=== PATIENT | female | born 1940 | race Caucasian/White ===

== ENCOUNTER 2018-06-10 09:32 | Outpatient (CLI) | payer MEDICARE ==
--- NOTE | 2018-06-10 16:38 | DEXA Report ---
Reason: POST MENOPAUSAL, SCREENING MAMMO Procedure Date: 06/10/2018 Accession Number: [id number] / [id number] Procedure: DEX - Dexa Spine and/or Hip CPT Code: FULL RESULT: EXAM: Dexa Spine and/or Hip DATE: 06/10/2018 10:21 AM CLINICAL HISTORY: POST MENOPAUSAL, SCREENING MAMMO TECHNIQUE: Dual energy x-ray absorptiometry (DXA) was performed on a [employer] System. Regions measured are the AP Spine, femoral neck, and if needed forearm. COMPARISON: None. In accordance with the International Society for Clinical Densitometry (ISCD) guidelines, data from previous exams may be reanalyzed using current recommendations and techniques. This is done to allow a more accurate basis for comparison with the current study. FINDINGS: The data for the lumbar spine is as follows: BMD (g/cm/cm) T-SCORE Z-SCORE REGION L1 0.836 -2.4 -1.4 L2 0.966 -1.9 -0.9 L3 1.182 -0.1 0.9 L4 TOTAL 1.001 -1.4 -0.3 NOTE: All evaluable vertebrae are used for classification The data for the hip is as follows: BMD (g/cm/cm) T-SCORE Z-SCORE REGION Neck 0.725 -2.3 -0.7 TOTAL 0.855 -1.2 0.1 NOTE: The femoral neck or total proximal femur, whichever is lowest, is used for classification. IMPRESSION: THE WHO CLASSIFICATION BASED ON THE INTERNATIONAL REFERENCE STANDARD IS OSTEOPENIA. THE FRACTURE RISK IS INCREASED. RECOMMENDATION: Patients with diagnosis of osteoporosis or osteopenia should have regular bone mineral density assessment. For those eligible for Medicare, routine testing is allowed once every 2 years. Testing frequency can be increased for patients who have rapidly progressing disease or for those who are receiving medical therapy to restore bone mass. COMMENT: World Health Organization (WHO) definitions for osteoporosis and osteopenia: NORMAL BMD: T-score at -1.0 or higher, fracture risk is low OSTEOPENIA BMD: T-score between -1.0 and -2.5, fracture risk is increased. OSTEOPOROSIS BMD: T-score at -2.5 or lower, fracture risk is high. National Osteoporosis Foundation recommends: 1. Obtain adequate dietary calcium (at least 1200 mg per day) and vitamin D (400-800 international units per day). 2. Participate, as appropriate, in regular weightbearing and muscle-strengthening exercise. 3. Avoid tobacco use and reduce alcohol and caffeine intake. 4. For more detailed information see the website at www.NOF.org.
== END 2018-06-10 09:33 | disposition home or self-care (01) ==
LOC: DI 09:32
PROVIDERS: ATTEND Physician Assistant
DX: Z12.31 Encounter for screening mammogram for malignant neoplasm of breast (principal); N95.8 Other specified menopausal and perimenopausal disorders; M85.89 Other specified disorders of bone density and structure, multiple sites
CPT/HCPCS: 77080

== ENCOUNTER 2018-07-29 12:47 | Outpatient (CLI) | payer MEDICARE ==
--- NOTE | 2018-07-29 21:04 | XRAY Report ---
Reason: RIGHT FOOT PAIN Procedure Date: 07/29/2018 Accession Number: [id number] / [id number] Procedure: XR - Foot 3 View RT CPT Code: FULL RESULT: EXAM: RIGHT FOOT RADIOGRAPHY EXAM DATE: 07/29/2018 01:00 PM. CLINICAL HISTORY: RIGHT FOOT PAIN. COMPARISON: None. TECHNIQUE: 3 views. FINDINGS: Bones: No fracture. Large plantar and moderate Achilles spurs. Joints: Normal. No subluxations. Soft Tissues: Normal. No soft tissue swelling. Metallic foreign body ring is noted on the right second toe. IMPRESSION: 1. No fracture or malalignment. 2. No focal soft tissue abnormality. Prominent plantar and Achilles spurs. 3. If patient remains symptomatic, recommend follow up in 10-14 days. RADIA
== END 2018-07-29 12:48 | disposition home or self-care (01) ==
LOC: DI 12:47
PROVIDERS: ATTEND Nurse Practitioner Family
DX: M77.31 Calcaneal spur, right foot (principal)

== ENCOUNTER 2023-09-30 12:55 | Outpatient (CLI) | payer MEDICARE, MEDICAID ==
--- NOTE | 2023-09-30 19:33 | XRAY Report ---
PROCEDURE: Chest 3 View X-Ray INDICATIONS: SEVERE CHRONIC OBSTRUCTIVE PULMONARY DISEASE TECHNIQUE: 2 views of the chest were acquired. COMPARISON: Chest x-ray, 10/26/2014. FINDINGS: Surgical changes and devices: None. Lungs and pleura: No pleural effusions or pneumothorax. Mild interstitial prominence. No focal cons olidation. Mediastinum: Mediastinal contours appear normal. Heart size is normal. Bones and chest wall: Scoliosis. No suspicious bony lesions. Overlying soft tissues appear unremark able. IMPRESSION: No acute cardiopulmonary process. Reviewed by: Raffaele Tse MD on 09/30/2023 7:31 PM PST Approved by: Raffaele Tse MD on 09/30/2023 7:31 PM PST Station ID: [id number]
== END 2023-09-30 12:56 | disposition home or self-care (01) ==
LOC: DI.S 12:55
PROVIDERS: ATTEND Registered Nurse
DX: J44.1 Chronic obstructive pulmonary disease with (acute) exacerbation (principal)